=== PATIENT | male | born 1975 | race Caucasian/White ===

== ENCOUNTER → 2016-09-08 | Outpatient (CLI) | payer OTHER ==
--- NOTE | 2016-09-08 14:36 | XR ---
EXAMINATION TYPE: XR lumbosacral spine min 4V DATE OF EXAM: 09/08/2016 2:31 PM CLINICAL HISTORY: Chronic back pain TECHNIQUE: Frontal, lateral, and oblique images of the lumbar spine are obtained. COMPARISON: CT abdomen and pelvis July 28, 2015. FINDINGS: There is 4 mm calculus mid pole level left kidney redemonstrated. There are 5 lumbar type vertebral bodies identified. The lumbar spine shows satisfactory alignment without evidence of acute fracture or dislocation. Vertebral body heights and disk space heights are within normal limits. M ild anterior spurring lower lumbar levels is present. The oblique images appear within normal limits. IMPRESSION: Mild anterior spurring lower lumbar levels as well as left-sided renal calculus redemonst rated.
== END | disposition home or self-care (01) ==
LOC: RADXRMAIN 14:20
PROVIDERS: ATTEND Pediatrics
DX: M46.06 Spinal enthesopathy, lumbar region (principal)
CPT/HCPCS: 72110

== ENCOUNTER → 2016-12-22 | Outpatient (CLI) | payer OTHER ==
--- NOTE | 2016-12-22 13:14 | MR ---
EXAMINATION TYPE: MR lumbar spine wo con DATE OF EXAM: 12/22/2016 1:07 PM COMPARISON: NONE HISTORY: Chronic back pain CONTRAST: The patient was injected with mL intravenous gadolinium contrast. Multiplanar, MultiSpin echo imaging of the lumbar spine was performed. L1-L2: Normal disc appearance without desiccation. No herniation, protrusion or disc bulging. No ca nal stenosis is present. Foramina are patent bilaterally. L2-L3: Normal disc appearance without desiccation. No herniation, protrusion or disc bulging. No ca nal stenosis is present. Foramina are patent bilaterally. L3-L4: Normal disc appearance without desiccation. No herniation, protrusion or disc bulging. No ca nal stenosis is present. Foramina are patent bilaterally. L4-L5: Normal disc appearance without desiccation. No herniation, protrusion or disc bulging. No ca nal stenosis is present. Foramina are patent bilaterally. L5-S1: Mild degenerative disc disease with posterior disc bulge. Small right paracentral disc herniat ion minimally effaces the ventral thecal sac. There is mild right lateral recess stenosis. Facet join t arthropathy resulting in mild bilateral foraminal encroachment. No evidence for central stenosis. Lumbar segments are intact. No paraspinal masses are identified. Conus medullaris has a normal appe arance. Scattered mild ventral spondylosis.Small left renal cyst. IMPRESSION: 1. Small right paracentral disc herniation at L5-S1 with right lateral recess stenosis.
== END | disposition home or self-care (01) ==
LOC: RADMRIMAIN 12:01
PROVIDERS: ATTEND Nurse Practitioner Family
DX: M48.07 Spinal stenosis, lumbosacral region (principal); M51.27 Other intervertebral disc displacement, lumbosacral region
CPT/HCPCS: 72148

== ENCOUNTER → 2018-12-04 | Outpatient (CLI) | payer OTHER ==
--- NOTE | 2018-12-04 14:43 | US ---
EXAMINATION TYPE: US kidneys/renal and bladder DATE OF EXAM: 12/04/2018 COMPARISON: 2015 CT, 2015 US CLINICAL HISTORY: Z87.442 Hx of nephrolithiasis. EXAM MEASUREMENTS: Right Kidney: 11.0 x 4.5 x 4.6 cm Left Kidney: 11.3 x 5.5 x 4.9 cm Right Kidney: No hydronephrosis, nephrolithiasis or masses seen Left Kidney: No hydronephrosis, nephrolithiasis or masses seen Bladder: wnl Right jet seen, left not visualized IMPRESSION: No acute process.
== END | disposition home or self-care (01) ==
LOC: RADUSWWP 14:02
PROVIDERS: ATTEND Pediatrics
DX: Z09 Encounter for follow-up examination after completed treatment for conditions other than malignant neoplasm (principal); Z87.442 Personal history of urinary calculi
CPT/HCPCS: 76770